=== PATIENT | male | born 2000 | race Caucasian/White ===

== ENCOUNTER 2018-12-16 17:13 | Emergency (ER) | payer BC ==
[2018-12-16 17:56] VITALS: BP 129/67
--- NOTE | 2018-12-16 19:33 | UC ---
HPI Wound/Suture Re-check - HPI Summary HPI Summary: 18-year-old male presents to the urgent care for suture removal. States he was evaluated at the [facility] emergency room one week ago for a laceration to his right middle finger. He had 4 interrupted sutures placed at that time. Denies fever, chills, redness, swelling, purulent discharge, decreased range of motion, numbness, or tingling. - History Of Current Complaint Chief Complaint: UCLaceration Stated Complaint: SUTURE REMOVAL Time Seen by Provider: 12/16/18 19:16 Hx Obtained From: Patient Pain Intensity: 0 - Allergies/Home Medications Allergies/Adverse Reactions: Allergies Allergy/AdvReac Type Severity Reaction Status Date / Time No Known Allergies Allergy Verified 12/16/18 17:55 Home Medications: Home Medications NK [No Home Medications Reported] 12/16/18 [History Confirmed 12/16/18] PMH/Surg Hx/FS Hx/Imm Hx Previously Healthy: Yes - Denies significant PMH - Surgical History Surgical History: Yes Surgery Procedure, Year, and Place: oral surgery at 13 - Family History Known Family History: Positive: Non-Contributory - Social History Occupation: Student Lives: Dormitory/Roommates Alcohol Use: Occasionally Substance Use Type: None Smoking Status (MU): Light Every Day Tobacco Smoker Type: Cigarettes Amount Used/How Often: 2-3 cigarettes daily Review of Systems All Other Systems Reviewed And Are Negative: Yes Constitutional: Negative: Fever, Chills Skin: Positive: Other - See HPI Respiratory: Positive: Negative Cardiovascular: Positive: Negative Gastrointestinal: Positive: Negative Genitourinary: Positive: Negative Motor: Negative: Weakness Neurovascular: Negative: Decreased Sensation Musculoskeletal: Negative: Arthralgia, Decreased ROM Neurological: Positive: Negative Is Patient Immunocompromised?: No Physical Exam - Summary Physical Exam Summary: GENERAL APPEARANCE: Well developed, well nourished, alert and cooperative, and appears to be in no acute distress. CARDIAC: Normal S1 and S2. No S3, S4 or murmurs. Rhythm is regular. There is no peripheral edema, cyanosis or pallor. Extremities are warm and well perfused. Capillary refill is less than 2 seconds. Peripheral pulses intact. LUNGS: Clear to auscultation without rales, rhonchi, wheezing or diminished breath sounds. ABDOMEN: Positive bowel sounds. Soft, nondistended, nontender. No guarding or rebound. No masses or hepatosplenomegally. MUSKULOSKELETAL: ROM intact to all extremities. No joint erythema or tenderness. Normal muscular development. Normal gait. EXTREMITIES: Healing, well approximated laceration to the palmar aspect of the right middle finger with 4 intact interrupted sutures. No redness, swelling, or purulent discharge noted. SKIN: Skin normal color, texture and turgor with no lesions or eruptions. Triage Information Reviewed: Yes Vital Signs: Initial Vital Signs Temp 98.2 F 12/16/18 17:52 Pulse 87 12/16/18 17:52 Resp 24 12/16/18 17:52 BP 129/67 12/16/18 17:52 Pulse Ox 99 12/16/18 17:52 Vital Signs Reviewed: Yes Images Hands: 1 - Healing, well approximated laceration with 4 intact interrupted sutures. No redness, swelling, or purulent drainage noted. Course/Dx - Course Course Of Treatment: 18-year-old male presents to the urgent care for suture removal. States he was evaluated at the [facility] emergency room one week ago for a laceration to his right middle finger. He had 4 interrupted sutures placed at that time. Denies fever, chills, redness, swelling, purulent discharge, decreased range of motion, numbness, or tingling. Afebrile. Vital signs stable. Patient had a healing, well approximated laceration to the palmar aspect of the right middle finger with 4 intact interrupted sutures. No redness, swelling, or purulent discharge noted. The sutures were removed by myself without complication. Wound care, and anticipatory guidance and warning symptoms were reviewed with the patient. Verbalizes understanding and agrees with plan of care. - Diagnosis Provider Diagnosis: Laceration of right middle finger, Encounter for removal of sutures Discharge ED - Sign-Out/Discharge Documenting (check all that apply): Patient Departure All imaging exams completed and their final reports reviewed: No Studies - Discharge Plan Condition: Stable Disposition: HOME Patient Education Materials: Laceration (ED) Referrals: No Primary Care Phys,NOPCP [Primary Care Provider] - Additional Instructions: Your sutures were removed without complication. Clean the wound with a mild soap and water at least once a day. Apply some antibiotic ointment and cover with a bandage. This should be changed at least once a day or any time the dressing becomes wet or soiled. Watch for signs of infection including fever greater than 100.5 F, severe pain not managed with pain medication, redness that spreads, swelling of the hand/ fingers, or pus draining from the wound. Seek immediate medical attention should any of these occur. - Billing Disposition and Condition Condition: STABLE Disposition: Home
== END 2018-12-16 19:40 | disposition home or self-care (01) ==
LOC: UCCORT 17:13
DX: S61.212D Laceration without foreign body of right middle finger without damage to nail, subsequent encounter (principal); F17.210 Nicotine dependence, cigarettes, uncomplicated; X58.XXXD Exposure to other specified factors, subsequent encounter
CPT/HCPCS: 99202; G0463